=== PATIENT | male | born 1930 | race Caucasian/White ===

== ENCOUNTER → 2017-04-27 | Outpatient (CLI) | payer MEDICARE ==
[~2017-04-27] MED LIST: Cipro500 MG PO; ERYT.5TO BOTHEYES; EYE OMEGA ADVA1 EACH PO; LOPE2C PO; METO25 PO; Motion Sickness25 M1 PO; PRAV20 PO; Percocet 5-3251 EACH PO; SPIR25; TIOT18; VENL37.5ER PO
[2017-04-27 17:05] LABS: Adenovirus F 40/41 Not Detected (NOT DETECT); Astrovirus Not Detected (NOT DETECT); Campylobacter Sp Not Detected (NOT DETECT); Cryptosporidium Not Detected (NOT DETECT); Cyclospora Cayetanensis Not Detected (NOT DETECT); E. Coli O157 Not Detected (NOT DETECT); Entamoeba Histolytica Not Detected (NOT DETECT); Enteroaggregative E. coli-EAEC Not Detected (NOT DETECT); Enteropathogenic E. coli-EPEC Not Detected (NOT DETECT); Enterotoxigenic E. coli-ETEC Not Detected (NOT DETECT); Giardia Lamblia Not Detected (NOT DETECT); Norovirus GI/GII Not Detected (NOT DETECT); Plesiomonas Shigelloides Not Detected (NOT DETECT); Rotavirus A Not Detected (NOT DETECT); Salmonella Sp Not Detected (NOT DETECT); Sapovirus Not Detected (NOT DETECT); Shiga Toxin-prod E. coli-STEC Not Detected (NOT DETECT); Shigella/Enteroin E. coli-EIEC Not Detected (NOT DETECT); Vibrio Cholerae Not Detected (NOT DETECT); Vibrio Sp Not Detected (NOT DETECT); Yersinia Enterocolitica Not Detected (NOT DETECT)
== END | disposition home or self-care (01) ==
LOC: OLS 17:02 → LAB SHORT 17:02 → LAB FUT 04-27 09:45
PROVIDERS: Family Medicine
DX: R19.7 Diarrhea, unspecified (principal)
CPT/HCPCS: 87507

== ENCOUNTER → 2018-02-26 | Outpatient (CLI) | payer MEDICARE ==
[2018-02-27 12:31] LABS: Adenovirus F 40/41 Not Detected (NOT DETECT); Astrovirus Not Detected (NOT DETECT); Campylobacter Sp Not Detected (NOT DETECT); Cryptosporidium Not Detected (NOT DETECT); Cyclospora Cayetanensis Not Detected (NOT DETECT); E. Coli O157 Not Detected (NOT DETECT); Entamoeba Histolytica Not Detected (NOT DETECT); Enteroaggregative E. coli-EAEC Not Detected (NOT DETECT); Enteropathogenic E. coli-EPEC Not Detected (NOT DETECT); Enterotoxigenic E. coli-ETEC Not Detected (NOT DETECT); Giardia Lamblia Not Detected (NOT DETECT); Norovirus GI/GII Not Detected (NOT DETECT); Plesiomonas Shigelloides Not Detected (NOT DETECT); Rotavirus A Not Detected (NOT DETECT); Salmonella Sp Not Detected (NOT DETECT); Sapovirus Not Detected (NOT DETECT); Shiga Toxin-prod E. coli-STEC Not Detected (NOT DETECT); Shigella/Enteroin E. coli-EIEC Not Detected (NOT DETECT); Vibrio Cholerae Not Detected (NOT DETECT); Vibrio Sp Not Detected (NOT DETECT); Yersinia Enterocolitica Not Detected (NOT DETECT)
== END | disposition home or self-care (01) ==
LOC: LAB 12:29 → LAB SHORT 12:29 → LAB FUT 02-26 15:35
PROVIDERS: Internal Medicine Gastroenterology
DX: R19.7 Diarrhea, unspecified (principal); Z86.19 Personal history of other infectious and parasitic diseases
CPT/HCPCS: 87507

== ENCOUNTER 2018-04-20 11:02 | Inpatient (IN) | payer MEDICARE ==
[~2018-04-20] VITALS: Ht 175.3 cm; Wt 76.2 kg
[2018-04-20 12:00] LABS: BASOPHILS ABSOLUTE AUTO 0.03 K/mm3 (0.00-0.23); BASOPHILS PERCENT AUTO 0 % (0-2); EOSINOPHILS ABSOLUTE AUTO 0.02 K/mm3 (0.00-0.68); EOSINOPHILS PERCENT AUTO 0 % (0-6); Hematocrit 43.8 % (37.0-53.0); Hemoglobin 13.7 g/dL (13.5-17.5); IMMATURE GRAN ABSOLUTE AUTO 0.05 K/mm3 (0.00-0.10); IMMATURE GRAN PERCENT AUTO 1 % (0-1); LYMPHOCYTES ABSOLUTE AUTO 1.74 K/mm3 (0.84-5.20); LYMPHOCYTES PERCENT AUTO 18 % (21-46); MONOCYTES ABSOLUTE AUTO 0.74 K/mm3 (0.16-1.47); MONOCYTES PERCENT AUTO 8 % (4-13); Mean Corpuscular HGB 29.9 pg (26.0-34.0); Mean Corpuscular HGB Conc 31.3 g/dL (31.5-36.5); Mean Corpuscular Volume 96 fL (80-100); Mean Platelet Volume 10.6 fL (9.1-12.4); NEUTROPHILS ABSOLUTE AUTO 7.33 K/mm3 (1.96-9.15); NEUTROPHILS PERCENT AUTO 74 % (41-73); Platelet Count 157 K/mm3 (150-400); RDW Coefficient Variation 13.3 % (11.7-14.2); RDW Standard Deviation 47.2 fL (35.1-46.3); Red Blood Cell Count 4.58 M/mm3 (4.30-5.90); White Blood Cell Count 9.91 K/mm3 (4.00-11.30)
[2018-04-20 12:18] LABS: Albumin, Blood 3.7 g/dL (3.4-5.0); Albumin/Globulin Ratio 0.8 (0.8-1.8); Bilirubin, Total 0.6 mg/dL (0.1-1.0); Bun/Creatinine Ratio 12.9 (12.0-20.0); Calcium, Blood 8.8 mg/dL (8.5-10.1); Creatinine, Blood 2.56 mg/dL (0.60-1.20); Globulin, Blood 4.5 g/dL (2.2-4.0); Potassium, Blood 4.4 mmol/L (3.5-5.5); Total Protein, Blood 8.2 g/dL (6.4-8.2)
[2018-04-20] MEDS ORDERED: GABA100 PO (16:26)
[2018-04-20] MEDS ORDERED: CLOP75 PO (16:26)
[2018-04-20] MEDS ORDERED: Cilostazol50 MG PO (16:27)
[2018-04-20] MEDS ORDERED: TAMS.4ER PO (16:27)
[2018-04-20] MEDS ORDERED: Pravachol40 MG PO (16:27)
[2018-04-20] MEDS ORDERED: Questran4 GM (16:28)
[2018-04-20 16:52] LABS: Source, Urine Clean Catch
[2018-04-20 17:00] LABS: Appearance, Urine Clear (Clear); Bilirubin, Urine Neg (Neg); Blood, Urine 4+ (Neg); Color, Urine Yellow (P-Yellow); Glucose Qualitative, Urine Neg (Neg); Ketones, Urine Neg (Neg); Leukocyte Esterase, Urine Neg (Neg); Nitrite, Urine Neg (Neg); Protein, Urine 2+ (Neg); Specific Gravity, Urine 1.015 (1.003-1.022); Urobilinogen, Urine NORM (Normal)
[2018-04-20 17:27] LABS: Bacteria Few /hpf; Granular Casts 0-2 /lpf (0); Squamous Epithelial Cells Not Seen /hpf (Few); White Blood Cells, Urine Not Seen /hpf (0-5)
[2018-04-20] MEDS ORDERED: ACIDOPHILUS PR0.5 MG PO (17:43)
[2018-04-20 18:47] LABS: U Amphetamine Screen Not Detected; U Barbituate Screen Not Detected; U Benzodiazapine Screen Not Detected; U Buprenorphine Screen Not Detected; U Cannabinoids Screen Not Detected; U Cocaine Screen Not Detected; U Methadone Screen Not Detected; U Methamphetamine Screen Not Detected; U Opiates Screen Not Detected; U Oxycodone Screen Not Detected; U Phencyclidine Screen Not Detected; U Propoxyphene Screen Not Detected
--- NOTE | 2018-04-21 03:17 | NUR ---
SHIFT SUMMARY 0820 RECEIVED PT TO RM 359 VIA GURNEY FROM ER. PT ADMITTED FOR ARF AND AMS. RECEIVED REPORT FROM MIQUEL RICHTER, PT NOT DOING WELL FOR SEVERAL DAYS PER FAMILY. PT HAVING INCREASED WEAKNESS AND UNABLE TO MOVE AROUND AT HOME AND CARE FOR HIMSELF. PT LIVING ALONE AND UNABLE TO GET TO BTM, SOILING HIMSELF. PT INCONTINENT OF BOWEL AND BLADDER. NORMALLY WEARS DEPENDS FOR URGENCY, BUT NOW COMPLETELY INCONTINENT. HX OF COPD, HTN, CKD, RLS, AND C-DIFF X2. PT VERY PLEASANT. A LITTLE PAIUTE OF [place]. WEAK AND DECONDITIONED. REDNESS TO FACE AND FOREHEAD. SM AMT OF REDNESS TO INNER THIGHS FROM DEPENDS. ALONSO PLACED IN ER; PATENT, DRAINING YELLOW. UA NEG FOR UTI. URINE TOX NEG PER MIQUEL RICHTER. PT DEHYDRATED; NS INFUSING TO LAC WNL. NO C/O PAIN. NO S/SX OF DISTRESS NOTED OR REPORTED. PO MEDS ADMINISTERED W/O DIFFICULTY. CALL LT IN REACH.
[2018-04-21 05:21] LABS: BASOPHILS ABSOLUTE AUTO 0.02 K/mm3 (0.00-0.23); BASOPHILS PERCENT AUTO 0 % (0-2); EOSINOPHILS ABSOLUTE AUTO 0.01 K/mm3 (0.00-0.68); EOSINOPHILS PERCENT AUTO 0 % (0-6); Hematocrit 41.2 % (37.0-53.0); IMMATURE GRAN ABSOLUTE AUTO 0.05 K/mm3 (0.00-0.10); IMMATURE GRAN PERCENT AUTO 1 % (0-1); LYMPHOCYTES ABSOLUTE AUTO 2.15 K/mm3 (0.84-5.20); LYMPHOCYTES PERCENT AUTO 26 % (21-46); MONOCYTES PERCENT AUTO 12 % (4-13); Mean Corpuscular HGB 29.8 pg (26.0-34.0); Mean Corpuscular HGB Conc 31.6 g/dL (31.5-36.5); Mean Corpuscular Volume 95 fL (80-100); Mean Platelet Volume 11.2 fL (9.1-12.4); NEUTROPHILS ABSOLUTE AUTO 5.13 K/mm3 (1.96-9.15); NEUTROPHILS PERCENT AUTO 61 % (41-73); Platelet Count 131 K/mm3 (150-400); RDW Coefficient Variation 13.5 % (11.7-14.2); RDW Standard Deviation 47.1 fL (35.1-46.3); Red Blood Cell Count 4.36 M/mm3 (4.30-5.90); White Blood Cell Count 8.36 K/mm3 (4.00-11.30)
[2018-04-21 05:46] LABS: Bun/Creatinine Ratio 14.5 (12.0-20.0); Calcium, Blood 8.1 mg/dL (8.5-10.1); Creatinine, Blood 2.62 mg/dL (0.60-1.20); Potassium, Blood 4.1 mmol/L (3.5-5.5)
--- NOTE | 2018-04-21 18:41 | NUR ---
PATIENT SLEPT MOST OF THE SHIFT. HE HAD 3 LARGE LOOSE BMS . HE HAS HAD NO COMPLAINTS OF PAIN, NV, SOB. NO SIGNIFICANT CHANGES THIS SHIFT.
[2018-04-22 05:09] LABS: BASOPHILS ABSOLUTE AUTO 0.01 K/mm3 (0.00-0.23); BASOPHILS PERCENT AUTO 0 % (0-2); EOSINOPHILS PERCENT AUTO 0 % (0-6); Hemoglobin 12.9 g/dL (13.5-17.5); IMMATURE GRAN ABSOLUTE AUTO 0.03 K/mm3 (0.00-0.10); IMMATURE GRAN PERCENT AUTO 0 % (0-1); LYMPHOCYTES ABSOLUTE AUTO 1.43 K/mm3 (0.84-5.20); LYMPHOCYTES PERCENT AUTO 20 % (21-46); MONOCYTES ABSOLUTE AUTO 0.67 K/mm3 (0.16-1.47); MONOCYTES PERCENT AUTO 10 % (4-13); Mean Corpuscular HGB 29.5 pg (26.0-34.0); Mean Corpuscular HGB Conc 31.5 g/dL (31.5-36.5); Mean Corpuscular Volume 94 fL (80-100); Mean Platelet Volume 11.5 fL (9.1-12.4); NEUTROPHILS ABSOLUTE AUTO 4.94 K/mm3 (1.96-9.15); NEUTROPHILS PERCENT AUTO 70 % (41-73); Platelet Count 129 K/mm3 (150-400); RDW Coefficient Variation 13.3 % (11.7-14.2); RDW Standard Deviation 45.8 fL (35.1-46.3); Red Blood Cell Count 4.37 M/mm3 (4.30-5.90); White Blood Cell Count 7.08 K/mm3 (4.00-11.30)
[2018-04-22 05:39] LABS: Bun/Creatinine Ratio 15.2 (12.0-20.0); Creatinine, Blood 2.5 mg/dL (0.60-1.20); Potassium, Blood 3.6 mmol/L (3.5-5.5)
--- NOTE | 2018-04-22 05:58 | NUR ---
SHIFT SUMMARY PT ALTURAS VERY LETHARGIC. INCONT OF LOOSE STOOL MULTIPLE TIMES. INCONT OF URINE WELL. CONFUSED/FORGETFUL KNEW HE WAS IN A HOSPITAL BUT THOUGHT IT WAS [facility]. HE WAS ABLE TO SLEEP THROUGH NIGHT NO C/P PAIN. SCD'S ON. BED ALARM IN USE
--- NOTE | 2018-04-22 16:15 | NUR ---
PATIENT HAS SLEPT MOST OF THE SHIFT. HE REQUIRES ASSISTANCE WITH MEDS . EVEN MIXED IN SAUCE HE WILL SPIT THEM OUT OR CHEW THEM UP. HE IS CONFUSED BUT PLEASANT. HE DOES NOT ATTEMPT TO GET OUT OF BED AND HAS NO COMPLAINTS. CALL LIGHT WITHIN REACH.
[2018-04-23 01:39] LABS: Adenovirus F 40/41 Not Detected (NOT DETECT); Astrovirus Not Detected (NOT DETECT); Campylobacter Sp Not Detected (NOT DETECT); Cryptosporidium Not Detected (NOT DETECT); Cyclospora Cayetanensis Not Detected (NOT DETECT); E. Coli O157 Not Detected (NOT DETECT); Entamoeba Histolytica Not Detected (NOT DETECT); Enteroaggregative E. coli-EAEC Not Detected (NOT DETECT); Enteropathogenic E. coli-EPEC Not Detected (NOT DETECT); Enterotoxigenic E. coli-ETEC Not Detected (NOT DETECT); Giardia Lamblia Not Detected (NOT DETECT); Norovirus GI/GII Not Detected (NOT DETECT); Plesiomonas Shigelloides Not Detected (NOT DETECT); Rotavirus A Not Detected (NOT DETECT); Salmonella Sp Not Detected (NOT DETECT); Sapovirus Not Detected (NOT DETECT); Shiga Toxin-prod E. coli-STEC Not Detected (NOT DETECT); Shigella/Enteroin E. coli-EIEC Not Detected (NOT DETECT); Vibrio Cholerae Not Detected (NOT DETECT); Vibrio Sp Not Detected (NOT DETECT); Yersinia Enterocolitica Not Detected (NOT DETECT)
--- NOTE | 2018-04-23 06:27 | NUR ---
SHIFT SUMMARY PT ORIENTED TO SELF. INCONT OF URINE AND LIQ STOOL. C DIFF NEG. VERY STIFF C TURNS. SCD'S IN PLACE. BED ALARM IN USE. PLEASANTLY CONFUSED. HE WAS ABLE TO SLEEP T/O NIGHT.
--- NOTE | 2018-04-23 09:50 | NUR ---
Student nurse Myrtle Huerta received permission for care on 04-23-18 for 04-24-18 Myrtle Huerta
[2018-04-23 14:51] LABS: Bun/Creatinine Ratio 16.8 (12.0-20.0); Creatinine, Blood 2.56 mg/dL (0.60-1.20); Potassium, Blood 3.4 mmol/L (3.5-5.5)
--- NOTE | 2018-04-23 20:21 | NUR ---
SUMMARY- PT ALERT TO SELF, CONFUSED. [place], VERBAL, FOLLOWS COMMANDS. PT UP TO CHAIR X 2 WITH KRISTINE LIFT, UNABLE TO BEAR ANY WEIGHT WITH ASSIST. FEEDS SELF. INCONT B/B, CALAZYME TO EXCORIATED GRAIN. VSS. SCD'S IN USE. PILLS CRUSHED IN APPLESAUSE, NO ASPIRATION NOTED THIS SHIFT. PT SLEEPY ALL DAY, ONLY STAYED AWAKE FOR MEALS AND WANTED TO SLEEP MOST OF THE DAY. REPORT TO DAY RN.
--- NOTE | 2018-04-24 01:13 | NUR ---
Assumed care of pt after recieving report from off-going nurse.
[2018-04-24 05:12] LABS: Bun/Creatinine Ratio 16.7 (12.0-20.0); Calcium, Blood 7.9 mg/dL (8.5-10.1); Creatinine, Blood 2.63 mg/dL (0.60-1.20)
--- NOTE | 2018-04-24 06:31 | NUR ---
Shift summary: Pt alert to self. Very sleepy. Sleeps unless awakened by staff. confused. Mouth care completed. Pt had x 2 liquid bowel movements during night. Pt incontinent of both bowel and bladder. Pt cleaned up several times during night.
[2018-04-24 15:22] LABS: Magnesium, Blood 2.1 mg/dL (1.6-2.4)
--- NOTE | 2018-04-24 15:33 | NUR ---
Patient gave me permission to provide care for them on 04/25/18.
--- NOTE | 2018-04-25 04:19 | NUR ---
K WAS 3.0 ON AM OF 04/25/18 W/NO AM LAB F/U TODAY. DISCUSSED W/HARI BARTON WHO SAID TO HAVE ATTENDING ADDRESS IT BUT NO NEED FOR AM LABS AT THIS TIME.
--- NOTE | 2018-04-25 04:35 | NUR ---
SUMMARY: PT ORIENTED TO SELF/SURROUNDINGS AND PLEASANT/COOPERATIVE W/CARE. HE CONT'S DROWSY AND AWAKES TO STAFF BUT SLEPT MAJORITY OF NOCTE OTHERWISE. TURN SCHEDULE MAINTAINED D/T PT BEING STIFF/RIGID AND DOESN'T REPOSITION SELF. HE HAD X1 LIQUID BM THIS SHIFT W/ATTENDS AND LINEN CHANGED PRN. HE'S INCONTINENT OF URINE WELL. EDEMA NOTED TO IDA AREA AND BUTTOCKS PINK FROM STOOL, CREAM APPLIED TO BUTTOCKS AND IDA AREA. HE OCCASIONALLY APPEARS SOB BUT SPO2 WNL ON RA AND LS DIM T/O. PT HAS A WEAK SPA MANAGER COUGH BUT SEEMS TO CLEAR SECRETION. KRISTINE LIFT USED FOR T/F'S D/T DECONDITIONING. SCD'S IN PLACE. PT TOLERATED PILLS W/O S/S ASPIRATION PER ORDERS. NO ACUTE CHANGES, VSS/AFEBRILE. WILL MONITOR AND REPORT TO DAY RN.
[2018-04-25 06:33] LABS: Bun/Creatinine Ratio 15.9 (12.0-20.0); Creatinine, Blood 2.46 mg/dL (0.60-1.20); Potassium, Blood 2.9 mmol/L (3.5-5.5)
[2018-04-25 08:24] LABS: BASOPHILS ABSOLUTE AUTO 0.01 K/mm3 (0.00-0.23); BASOPHILS PERCENT AUTO 0 % (0-2); EOSINOPHILS ABSOLUTE AUTO 0.01 K/mm3 (0.00-0.68); EOSINOPHILS PERCENT AUTO 0 % (0-6); Hematocrit 35.9 % (37.0-53.0); Hemoglobin 11.3 g/dL (13.5-17.5); Mean Corpuscular HGB 29.8 pg (26.0-34.0); Mean Corpuscular HGB Conc 31.5 g/dL (31.5-36.5); Mean Corpuscular Volume 95 fL (80-100); Mean Platelet Volume 11.7 fL (9.1-12.4); Platelet Count 130 K/mm3 (150-400); RDW Coefficient Variation 13.8 % (11.7-14.2); RDW Standard Deviation 48.1 fL (35.1-46.3); Red Blood Cell Count 3.79 M/mm3 (4.30-5.90); White Blood Cell Count 6.51 K/mm3 (4.00-11.30)
[2018-04-25 08:28] LABS: IMMATURE GRAN ABSOLUTE AUTO 0.06 K/mm3 (0.00-0.10); IMMATURE GRAN PERCENT AUTO 1 % (0-1); LYMPHOCYTES ABSOLUTE AUTO 1.55 K/mm3 (0.84-5.20); LYMPHOCYTES PERCENT AUTO 24 % (21-46); MONOCYTES ABSOLUTE AUTO 0.22 K/mm3 (0.16-1.47); MONOCYTES PERCENT AUTO 3 % (4-13); NEUTROPHILS ABSOLUTE AUTO 4.66 K/mm3 (1.96-9.15); NEUTROPHILS PERCENT AUTO 72 % (41-73)
--- NOTE | 2018-04-25 08:55 | NUR ---
PT TO IMAGING VIA GURNEY ON 5L O2.
[2018-04-25 12:21] LABS: U Amphetamine Screen Not Detected; U Barbituate Screen Not Detected; U Benzodiazapine Screen Not Detected; U Buprenorphine Screen Not Detected; U Cannabinoids Screen Not Detected; U Cocaine Screen Not Detected; U Methadone Screen Not Detected; U Methamphetamine Screen Not Detected; U Opiates Screen Not Detected; U Oxycodone Screen Not Detected; U Phencyclidine Screen Not Detected; U Propoxyphene Screen Not Detected
--- NOTE | 2018-04-25 15:55 | NUR ---
INITIAL [facility] REFERRAL VISIT/ASSESSMENT: Referral received and t/c from pt's RN received with update on current status. EMR/Dr's PNs of today reviewed prior to my visit. Pt's peter and enio at bedside. Pt stayed asleep or unresponsive for the first 20 minutes of my visit. Audible respiratory rattle heard. Pt mouth breathing with O2 via nc/nasal pillow in place. Pt's hands cool. I held his hand while talking with family re: pt's wishes, current options/goals for care going forward. Pt did not respond to verbal or tactile stimuli initially but after talking with family for some time, he opened his eyes and I began speaking directly to him. He opened his eyes further, smiled at me and when I talked to him about making sure he was comfortable, he gave a slight yes nod of his chin and smiled more. Daughter and enio are very familiar with pt's advanced directives and are in 100% support of it. They stated he would want to try to improve and feel that his past 5-6 days in the hospital are really the most he would want to spend trying to reverse his current respiratory and renal issues. Pt normally resides with peter and enio and DaughterJessica states pt has become much weaker in recent months and had several episodes of an assisted slide to the floor as he lost strenght in legs. She's also noticed more time of being withdrawn and quiet, increased confusion with his dementia. He seemed to smile when she was talking about their daily routine of counting and reporting the egg haul from the family's chickens also. Family would very much like to transition pt's care to comfort care at this time. They understand that medications administered would be soley for the purpose of treating pt's s/s of pain, anxiety, nausea, agitation, leg spasms, distress and not reversing any current disease process. Primary s/s noted at this time is sporatic leg and body spasms and congested, wet respirations and dyspnea. Pt's RN in room for much of our conversation and she, family and I discussed what tx might be discontinued and what would be added prn to ensure his comfort. FAmily aware that pt will not have iv fluids or nutrition and will only be offered food and fluids orally if he is awake, alert and able to safely swallow with precautions observed. FAmily aware we will reassess daily and if pt's s/s managed well and he is not progressing rapidly we would discuss d/c options and plans. They would most likely prefer to take him home with hospice as long as support and equipment in place before d/c as they are unable to transfer him now. t/c to with report on my visit, request for comfort care orders. Dr will enter comfort care orders. Family plans to leave for the evening and get some rest at home. They will return tomorrow and would like to be called with any changes. Their numbers are already on the white board.
[2018-04-25 16:31] LABS: Albumin, Blood 2.5 g/dL (3.4-5.0); Anion Gap 13 mmol/L (6-16); Blood Urea Nitrogen 37 mg/dL (8-24); Bun/Creatinine Ratio 12.9 (12.0-20.0); CO2, Blood 18 mmol/L (21-32); Calcium, Blood 8.1 mg/dL (8.5-10.1); Chloride, Blood 115 mmol/L (98-108); Creatinine, Blood 2.87 mg/dL (0.60-1.20); Glomerular Filtration Rate 22 (60-); Glucose, Blood 116 mg/dL (70-99); Potassium, Blood 2.9 mmol/L (3.5-5.5); Sodium, Blood 146 mmol/L (136-145)
[2018-04-25 16:32] LABS: Phosphorus, Blood 2.4 mg/dL (2.5-4.9)
--- NOTE | 2018-04-25 17:22 | NUR ---
Mr. Drummond was alone in room at time of visit. He was awake, very weak, and confused. Per chart, he is a [employer]. I sat beside him and said the Lord's Prayer, beleiving this would be something he would recognize. He did not appear to respond. He was rather twitchy in his bed. INformed RN of possible pain. She addressed this immediately. Per RN, family has gone home for the day. I will attempt visit with family in coming days.
--- NOTE | 2018-04-25 19:50 | NUR ---
PT REPOSITIONED, MEDICATED PER EMAR FOR TEMP, ANXIETY AND DYSPNEA. SUCTIONED TO MANAGE SECRETIONS. ORAL CARE COMPLETED.
--- NOTE | 2018-04-25 19:53 | NUR ---
REPOSITIONED, CHANGED ATTENDS, ORAL CARE COMPLETED. NO S/SX OF DISTRESS AT THIS TIME.
--- NOTE | 2018-04-25 20:16 | NUR ---
PT RESTING QUIETLY, HF, DURING SHIFT REPORT. PT MADE COMFORT CARE THIS AFTERNOON. PT REPOSITIONED, ATTENDS CHANGED FOR SMEAR. PT CLEANED AND TURNED TO L SIDE. PT OPENED EYES DURING REPOSITIONING, BUT DID NOT ANS QUESTIONS. NO ACUTE DISTRESS NOTED. SM NPC WITH TURNING. BED ALARM ON FOR SAFETY.
--- NOTE | 2018-04-26 01:25 | NUR ---
SHIFT SUMMARY PT CONTINUES TO REST QUIETLY, SLEEPING. NO S/SX OF DISTRESS OR AGITATION NOTED TO PRESENT THIS SHIFT. OPENS EYES TO NOXIOUS STIMULI, BRIEFLY. CONDOM CATH IN PLACE; PATENT AND DRAINING. BED ALARM ON FOR SAFETY. NO FAMILY AT BS THIS SHIFT. WILL MONITOR.
--- NOTE | 2018-04-26 07:47 | NUR ---
COMFORT CARE PATIENT LAYING ON L SIDE. PULLING OF OXYGEN, APPEARS COMFORTABLE. REPOSITIONED WITH QUALITY ANALYST.
--- NOTE | 2018-04-26 10:45 | NUR ---
REMOVED PATIENT DENTURES. PROVIDED ORAL CARE. REPOSITIONED PATIENT FOR COMFORT. CHANGED ATTENDS. HELD PATIENTS HAND UNTIL PATIENT APPEARED TO SETTLE BACK DOWN AND CLOSE HIS EYES. AT 1045 NOTED FAMILY TO BE IN AT BEDSIDE. PALLIATIVE CARE NURSE CAME TO TALK WITH FAMILY.
--- NOTE | 2018-04-26 10:55 | NUR ---
Willie appeared to be very comfortable during my visit this morning. His dtr and SY are at the bedside. Their preventative maintenance technician was just visiting Willie and has now left the room. Jessica, pt's dtr, reports that her brother and SY are making arrangements to travel to [place] from the [facility]. No distress noted. Breathing is unlabored and quiet at this time. Family reports much less "twitching" of his legs. CM working with family for possible discharge with hospice although family at this time is hopeful that pt will pass away at the hospital. It is likely that pt has a pneumonia and may decline rapidly. PC will continue to follow up with pt and his family. Both dtr and SY have no questions or concerns at this time.
--- NOTE | 2018-04-26 13:02 | NUR ---
PATIENT SLEEPING COMFORTABLY. CHECKED ATTENDS, DRY. WILL CONTINUE TO MONITOR PATIENT.
--- NOTE | 2018-04-26 14:14 | NUR ---
PROVIDED ORAL CARE. PATIENT MUMBLING INCOHERENTLY. FAMILY AT BEDSIDE STATED HE HAS CHRONIC LEG PAIN. MEDICATED WITH ROXANOL FOR THIS CHRONIC LEG PAIN.
--- NOTE | 2018-04-26 15:32 | NUR ---
COMFORT CARE PATIENT IS VERY WARM TO TOUCH GAVE SUPPOSITORY TYLENOL PER EMAR. GROANING AND SQUEEZING THIS RN HAND, APPEARS UNCOMFORTABLE. MEDICATED PER EMAR. REPOSITIONED PATIENT. MOISTENED MOUTH WITH SWABS TO PATIENTS SATISFACTION. PATIENT CURRENTLY HAS EYES CLOSED. RESTING PEACEFULLY.
--- NOTE | 2018-04-26 16:40 | NUR ---
Mr. Drummond was alone in room and laying with eyes opne. He offered me his hand and I prayed for him. He did not respond otherwise. [employer] services will remain available to pt and family.
--- NOTE | 2018-04-26 18:29 | NUR ---
PATIENT IS CURRENTLY COMFORTABLE. COOLER TO TOUCH. ASLEEP. RESTING PEACEFULLY. NOT RESPONSIVE TO VOICE. UNABLE TO TALK TO STAFF AT THIS TIME. JERKY MOVEMENTS. UNABLE TO CLASP NURSES HAND AT THIS TIME.
--- NOTE | 2018-04-27 02:17 | NUR ---
04/26/181999 RESTING COMFORTABLY ON SIDE SUPPORTED BY PILLOWS. ORAL CARE GIVEN WITH MOIST SWABS AND LIP OINTMENT.CONDOM CATH INTACT.
--- NOTE | 2018-04-27 02:27 | NUR ---
04/27/18 0220 MOANS WITH TURNING. ROXANOL 10 MG GIVEN.
--- NOTE | 2018-04-27 06:01 | NUR ---
04/27/18 0600 Comfortable without distress. ORAL AND IDA-CARE GIVEN. REPOSITIONED TO OTHER SIDE.
--- NOTE | 2018-04-27 08:07 | NUR ---
NO C/O PAIN/ PT IN NO APPARENT DISTRESS. NO DYSPNEA/SECRETIONS. NO FA,DEREK MEMBERS PRESENT. WCTM.
--- NOTE | 2018-04-27 11:15 | NUR ---
PT IN NO APPARENT DISTRESS; PT SLEEPING. NO DYSPNEA/SECRETIONS. NO FAMILY MEMBERS PRESENT. WCTM.
--- NOTE | 2018-04-27 11:50 | NUR ---
PT IN NO APPARENT DISTRESS. NO DYSPNEA/SECRETIONS. NO FAMILY MEMBERS PRESENT. WCTM.
--- NOTE | 2018-04-27 14:40 | NUR ---
Visited pt this afternoon. He is awake but nonverbal. When asked if he was having pain he shook his head yes. Tried to determine where his pain was by asking simple yes/no questions, but pt was unable to communicate where he was hurting. His breathing appears unlabored at this time. No family currently in his room. Will speak with pt's nurse re: c/o pain.
--- NOTE | 2018-04-27 14:46 | NUR ---
NO C/O PAIN. NO SOB/SECRETIONS. NO FAMILY PRESENT. WCTM.
--- NOTE | 2018-04-27 14:47 | NUR ---
MEDICATED FOR PAIN PER EMAR. NO DYSPNEA/SOB/SECRETIONS. NO FAMILY MEMBERS PRESENT. WCTM.
--- NOTE | 2018-04-27 17:12 | NUR ---
PT IN NO APPARENT DISTRESS. NO DYSPNEA/SOB/SECRETIONS. NO FAMILY MEMBERS PRESENT. WCTM.
--- NOTE | 2018-04-27 18:16 | NUR ---
PT IN NO APPARENT DISTRESS. NO DYSPNEA/SOB/SECRETIONS. NO FAMILY MEMBERS PRESENT IN ROOM. WCTM.
--- NOTE | 2018-04-27 19:23 | NUR ---
SHIFT SUMMARY: NO ACUTE CHANGES TO REPORT THIS SHIFT. COMFORT CARE MEASURES CONTINUING. MEDICATED FOR PAIN PER EMAR. O2 @ 5L FOR COMFORT. PT INCONTINENT; ATTENDS IN PALCE. TURN Q2H. REPORT GIVEN TO ONCOMING RN.
--- NOTE | 2018-04-27 22:36 | NUR ---
REPOSITIONED PATIENT FROM LEFT SIDE TO BACK WITH PILLOWS PROPPED UNDER EACH ARM AND LEGS. BRIEF CHANGED FOR INCONTINENCE OF URINE. BARRIER CREAM APPLIED FOR MILD REDNESS. FLUSHED IV IN RIGHT WRIST WITH 10ML NS.
--- NOTE | 2018-04-28 05:16 | NUR ---
*SHIFT SUMMARY* PATIENT ON 5L OF OXYGEN VIA OXIMIZER. NO NEW CHANGES IN PT'S STATUS. CONTINUEING COMFORT CARE MEASURES. REPOSITIONING Q2H, ASSESSING FOR PAIN OR DISCOMFORT. NO SIGNS OF PAIN NOTED DURING SHIFT. CALL LIGHT IN REACH, BED LOWERED AND LOCKED.
--- NOTE | 2018-04-28 10:20 | NUR ---
PATIENT GOT A BEDBATH, ATTENDS CHANGED AND CLEAN LINNEN PLACED AND PATIENT WAS REPOSITONED.
--- NOTE | 2018-04-28 10:21 | NUR ---
PATIENT DID NOT EAT BREAKFAST THIS SHIFT DUE TO BEING NPO AT THIS TIME.
--- NOTE | 2018-04-28 13:39 | NUR ---
PATIENT DID NOT EAT LUNCH THIS SHIFT DUE TO BEING NPO AT THIS TIME.
--- NOTE | 2018-04-28 14:57 | NUR ---
PATIENTS ATTENDS WERE CHANGED AND PATIENT WAS REPOSTIONED. ORAL CARE WAS DONE.
--- NOTE | 2018-04-28 17:48 | NUR ---
SHIFT SUMMARY PT HAS BEEN NONRESPONSIVE THROUGH SHIFT EXCEPT THIS MORNING WHEN HIS NAME WAS USED, HE OPENED HIS EYES. RESP HAS BEEN IN THE MID TO HIGH 20'S MOST OF THE DAY. MEDICATED FOR ELEVATED RESP BUT MINIMAL RESPONSE TO ROXONAL SEEN. FAMILY IN ROOM THIS MORNING FOR SHORT TIME.
--- NOTE | 2018-04-29 05:35 | NUR ---
*SHIFT SUMMARY* PT OPENS EYES TO VERBAL STIMULI. PATIENT APPEARED COMFORTABLE FOR MOST OF THE SHIFT. EARLY THIS AM PATIENT'S RESPIRATIONS BEGAN TO INCREASE AND AUDIBLE SECRETIONS. MEDICATED FOR PAIN AND SECRETIONS. STILL ON 5L VIA OXIMIZER.
--- NOTE | 2018-04-29 06:52 | NUR ---
REHABILITATOR INTO CHECK PATIENT. REHABILITATOR REPORTS TO THIS RN THAT PT IS NO LONGER BREATHING. THIS RN INTO SEE PATIENT. NO PALPABLE PULSES, AUSCULTATED FOR HEART SOUNDS NONE PRESENT. CHARGE NURSE NOTIFIED PATIENT HAS OFFICALLY PASSED. REPORT PASSED TO DAYSHIFT NURSE ALLAN WHO WILL NOTIFY FAMILY.
--- NOTE | 2018-04-29 10:23 | NUR ---
pt greens picker THIS AM THE PT PASSESD AWAY, WAS NOTIFIED, THE FAMILY WAS NOTIFIED, THE PT WAS PICKED UP BY [facility] FROM [facility]
== END 2018-04-29 06:52 | DRG 682 ==
LOC: ER 11:02 → MEDS 18:36 → ENPENDDIS 04-26 21:25 → MEDS 04-29 06:52
PROVIDERS: Emergency Medicine; Internal Medicine; Physician Assistant; ADMIT Hospitalist
DX: N17.9 Acute kidney failure, unspecified (principal); J69.0 Pneumonitis due to inhalation of food and vomit; G93.40 Encephalopathy, unspecified; E87.0 Hyperosmolality and hypernatremia; F03.90 Unspecified dementia, unspecified severity, without behavioral disturbance, psychotic disturbance, mood disturbance, and anxiety; Z51.5 Encounter for palliative care; I73.9 Peripheral vascular disease, unspecified; I12.9 Hypertensive chronic kidney disease with stage 1 through stage 4 chronic kidney disease, or unspecified chronic kidney disease; N18.3 Chronic kidney disease, stage 3 (moderate); R19.7 Diarrhea, unspecified; E83.51 Hypocalcemia; E87.6 Hypokalemia; E86.9 Volume depletion, unspecified; Z86.73 Personal history of transient ischemic attack (TIA), and cerebral infarction without residual deficits; E78.5 Hyperlipidemia, unspecified; J44.9 Chronic obstructive pulmonary disease, unspecified; I25.10 Atherosclerotic heart disease of native coronary artery without angina pectoris; Z95.0 Presence of cardiac pacemaker; Z87.891 Personal history of nicotine dependence; G47.33 Obstructive sleep apnea (adult) (pediatric); I65.29 Occlusion and stenosis of unspecified carotid artery; E86.0 Dehydration; R40.2423 Glasgow coma scale score 9-12, at hospital admission
CPT/HCPCS: 36415; 51702; 70450; 71046; 76770; 80048; 80053; 80069; 81001; 82306; 82330; 82550; 83735; 83880; 83970; 85025; 87507; 92526; 92610; 93005; 93010; 96360-59; 96361-59; 97162; 97530; 99285-25; J1650; J1940; J2060; J3480; J7030